=== PATIENT | female | born 1995 | race Caucasian/White ===

== ENCOUNTER 2018-02-19 17:16 | Emergency (ER) | payer BC ==
[~2018-02-19] VITALS: Ht 160 cm; Wt 60.2 kg
[~2018-02-19 17:16] MED LIST: IBUPROFEN600 MG PO; ROBITUSSIN AC,T10 ML PO
[2018-02-19] MEDS ORDERED: MOTRIN600 MG PO (17:55)
[2018-02-19 18:28] VITALS: BP 108/68
== END 2018-02-19 18:29 | disposition home or self-care (01) ==
LOC: EME 17:16
DX: S60.221A Contusion of right hand, initial encounter (principal); W23.0XXA Caught, crushed, jammed, or pinched between moving objects, initial encounter
CPT/HCPCS: 73130; 99281; 99284